=== PATIENT | male | born 1980 | race African-American/Black ===

== ENCOUNTER → 2024-08-08 | Outpatient (CLI) | payer OTHER ==
--- NOTE | 2024-08-08 11:47 | US ---
EXAMINATION TYPE: US abdomen limited DATE OF EXAM: 08/08/2024 COMPARISON: NONE CLINICAL INDICATION: Male, 43 years old with history of R10.13 EPIGASTRIC PAIN K44.9 DIAPH HERNIA; Pa in in the upper abdomen area. TECHNIQUE: Targeted ultrasound midline of the anterior wall upper abdomen above the umbilicus. FINDINGS: Scanned area of concern no abnormalities visualized. IMPRESSION: As above. No concerning mass or fluid collection. No obvious hernia defect seen. [facility], , 08/08/2024 11:45 AM
== END | disposition home or self-care (01) ==
LOC: RADUSWWP 07:59
PROVIDERS: ATTEND Family Medicine
DX: K44.9 Diaphragmatic hernia without obstruction or gangrene (principal)
CPT/HCPCS: 76705